=== PATIENT | male | born 2000 ===

== ENCOUNTER 2023-01-21 06:18 | Day surgery (SDC) | payer BC, SELFPAY ==
[2023-01-21] VITALS (8 sets, daily range): BP systolic 73–144; BP diastolic 34–83; PULSE 64–94; RESP 16–18; TEMP 36–37.1; O2SAT 93–100; BMI 23.9
--- NOTE | 2023-01-21 06:51 | W.PM.HP.N ---
Date of service: 01/21/23 Time of Service: 06:52 Assessment and Plan Assessment and plan (1) Phimosis: Status: Acute Assessment and plan: For circumcision History of Present Illness History of Present Illness Chief Complaint: Phimosis Narrative: This is a 22 year old man who has been having difficulty retracting the foreskin for over a year. He has pain when he delevops an erection and has intercourse. He has had episodes of paraphimosis but has not required a trip to the ED for this issue. He has failed conservative management with topical creams. He presents for circumcision. Review of Systems Narrative: No fevers or chills No vision change or dysphasia No diabetes or thyroid No shortness of breath, cough or hemoptysis No chest pain or palpitations No nausea, vomiting, hepatitis, ulcers, jaundice, diarrhea or constipation No seizures, strokes or peripheral neuropathy No bleeding disorders or anemia No gout or arthralgia PFSH All Active Problems Phimosis (Acute) Atopic dermatitis (Acute) Social History Smoking/Tobacco Use Status: Never Smoking risk assessment performed?: Yes Alcohol Intake: never Drug use: Never Substance use type: does not use Do you feel safe at home: Yes Do you feel safe in your relationship?: Yes Meds Allergies and Home Medications Allergies Allergy/AdvReac Type Severity Reaction Status Date / Time No Known Allergies Allergy Verified 01/21/23 06:23 Home Medications Medication Instructions Recorded Confirmed Type triamcinolone acetonide 0.1 % 1 applic topical DAILY 01/07/23 01/21/23 History topical cream multivitamin 1 tab PO DAILY 01/14/23 01/21/23 History Exam Const General: cooperative Neck Neck: supple Resp Effort & Inspection: normal respiratory effort Auscultation: clear to auscultation bilaterally Cardio Rate: regular rate Rhythm: regular rhythm GI Palpation: soft Penis: phimosis Neuro General: patient alert, patient awake and patient oriented x3 Results Last Vital Signs Temp 37.1 C 01/21/23 06:24 Pulse 94 H 01/21/23 06:24 Resp 16 01/21/23 06:24 BP 144/83 H 01/21/23 06:24 Pulse Ox 100 01/21/23 06:24 Time Spent Time spent with Patient: <40 minutes Time was spent: care coordination
[2023-01-21] MEDS: Lactated Ringers 1,000 ML 80 ML IV (06:52)
--- NOTE | 2023-01-21 06:56 | W.ANESPRE ---
General Info Date of Service Date Performed: 01/21/23 Height: 5 ft 8 in Weight: 71.4 kg Body Mass Index (BMI): 23.9 Surgical Procedure: Operation Date: 01/21/23 07:40 Proposed Procedure Side Surgeon p Circumcision Davian Haas MD Meds Allergies and Home Medications Allergies Allergy/AdvReac Type Severity Reaction Status Date / Time No Known Allergies Allergy Verified 01/21/23 06:23 Home Medication Medication Instructions Recorded triamcinolone acetonide 0.1 % 1 applic topical DAILY 01/07/23 topical cream multivitamin 1 tab PO DAILY 01/14/23 Current Visit Medications: Current Medications Generic Name Dose Route Start Last Admin Trade Name Freq PRN Reason Stop Dose Admin Ringer's Solution 1,000 mls @ 80 mls/hr 01/21/23 06:00 01/21/23 06:52 IV 02/19/23 23:59 80 mls/hr INFUSION JUAN Administration Cefazolin Sodium/Dextrose 2 gm in 50 mls @ 100 mls/hr 01/21/23 06:00 Ancef Duplex IVPB 01/21/23 16:00 PREOP JUAN IV Miscellaneous Supplies 1 each 01/21/23 06:00 Iv Access IV 02/19/23 23:59 DIRECTED JUAN Sodium Chloride 0 ml 01/21/23 06:00 Normal Saline Flush 10 Ml Syr IV 02/19/23 23:59 PRN PRN Sodium Chloride 0 ml 01/21/23 06:00 Normal Saline 10 Ml Vial IJ 02/19/23 23:59 DIRECTED PRN Sterile Water 0 ml 01/21/23 06:00 Water,Injection,Sterile 10 Ml Vial IJ 02/19/23 23:59 DIRECTED PRN PFSH Active Problems Active Problems: Problem Status Onset Code Phimosis N47.1 Atopic dermatitis L20.9 Tobacco Smoking/Tobacco Use Status: Never Alcohol Alcohol Intake: never Substance Use Substance use: Never Substance use type: does not use Vital Signs and Lab Results Vital Signs Most Recent Vital Signs in EMR: Most Recent Vital Signs Temp Pulse Resp BP Pulse Ox 37.1 C 94 H 16 144/83 H 100 01/21/23 06:24 01/21/23 06:24 01/21/23 06:24 01/21/23 06:24 01/21/23 06:24 Lab Results Blood Type / Crossmatch: No Data to Display Complete Blood Count: No Data to Display Complete Metabolic Panel: No Data to Display Liver Function Panel: No Data to Display Coagulation Panel: No Data to Display Cardiac Panel: No Data to Display Arterial Blood Gas: No Data to Display Venous Blood Gas: No Data to Display Pancreas Panel: No Data to Display Thyroid Panel: No Data to Display Infectious Disease: No Data to Display Blood Cultures: No Data to Display Toxicology Panel: No Data to Display Anesthesia Assessment and Plan Anesthesia History Personal History: No History of Anesthesia Complications Family History: No Family History of Anesthesia Complications Exercise Tolerance Exercise Tolerance: Metabolic Equivalents>4 Pertinent Negatives Pertinent Negatives: No Symptoms of GERD, No Major Cardiovascular Symptoms or Complaints, No Major Pulmonary Symptoms or Complaints and No History of CVA/TIA Cardiac & Pulmonary Exam Cardiac Exam: Normal S1/S2 Heart Sounds Pulmonary Exam: Clear Bilateral Breath Sounds Implantable Cardiac Device Does patient have a Pacemaker or an ICD?: No Airway Exam Known Difficult Airway: No Mallampati Class: 1 Mouth Opening: Normal (> 3cm) Thyromental Distance: Greater than 3 cm Neck Range of Motion: Full ROM Neck Circumference: Normal Teeth Condition: Normal Dentition ASA Classification ASA Score: ASA 1 Emergency Case?: No NPO Status NPO Status: NPO Clears >2 hours, Solids >8 hours Anesthesia Plan Resuscitation Status: Full Code Anesthesia Technique: General Anesthesia Airway Planned: LMA Monitors Used: Standard Monitors
[2023-01-21] MEDS: ceFAZolin 2 GM/50 ML BAG IVPB (07:31)
[2023-01-21] MEDS: Bupivacaine 0.5% Pres-Free 30 ML VIAL (07:46)
--- NOTE | 2023-01-21 08:11 | W.PM.DSUDISC ---
Date of service: 01/21/23 Time of Service: 08:12 Discharge Plan Disposition Condition: Stable Discharge Details Reason For Visit: circumcision Attending Provider: Davian Haas Primary Care Provider: Galo Crandall Home Meds and New Rx's Prescriptions: No Action multivitamin Tablet 1 tab PO DAILY triamcinolone acetonide 0.1 % cream 1 applic topical DAILY Discharge Instructions Additional Instructions: in AM, get dressing wet and unwrap dressing - then leave incision open to air OK to shower 01/22 followup appt 1 to 2 weeks for wound check Activity:: no lifting/straining for 1 week Remove Dressings/Wound Care:: 24 hours Shower/Bathe:: 24 hours Diet:: As Tolerated DS: Diagnosis Discharge Diagnosis (1) Phimosis: Status: Acute
--- NOTE | 2023-01-21 08:16 | ROE_ITS ---
Date of service: 01/21/23 Time of Service: 08:16 Operative Note Operative Note DATE OF PROCEDURE: 01/21/23 PRE-OP DIAGNOSIS: Phimosis POST-OP DIAGNOSIS: same PROCEDURE: circumcision SURGEON: Davian Haas ANESTHESIA TYPE: Local By Surgeon and General:No Airway Refer to Anesthesia Record ESTIMATED BLOOD LOSS: 10 PATHOLOGY: none sent COMPLICATIONS: None Patient was transported to: same day Patient's condition: stable Implants: none Indications: This is a 22-year-old gentleman who is uncircumcised. For the past 1 to 2 years, he has had progressive difficulty retracting the foreskin. At times, the skin will become trapped back behind the glans causing even more discomfort. He has not had any benefit from conservative treatment with topical ointments. He presents now for circumcision. Findings: phimosis Procedure Description: The patient was brought to the operating room on 01/21/2023. After successful induction of general anesthesia, he was placed in the supine position. His genitalia was prepped with betadine and draped. A dorsal penile nerve block was performed using quarter percent Marcaine. A penile ring block was also performed using the Marcaine. A circumferential incision was made on the outer aspect of the foreskin. The incision was made at approximately the level of the coronal sulcus. A dorsal slit was then performed and the inner aspect of the foreskin was expose d. A second circumferential incision was made approximately 2 cm below the level of the coronal sulcus. The incisions were connected and the redundant foreskin was removed. The incision sites were inspected for hemostasis. Any bleeding points were cauterized using the coagulation current of the Bovie. The skin edges were then reapproximated using simple interrupted 4-0 chromic sutures. An iodoform gauze was then applied to the incision site. The patient tolerated this procedure well with no complications.
[2023-01-21] MEDS: ePHEDrine 25 MG/5 ML Syringe IVP ×2 (08:33→08:46)
--- NOTE | 2023-01-21 09:53 | W.ANESPOSTOP ---
Postoperative Evaluation Date, Time and Location Date Performed: 01/21/23 Time Performed: 09:53 Patient Location: Day Surgery Unit Vital Signs Most Recent Imported Vital Signs: Most Recent Vital Signs Temp Pulse Resp BP Pulse Ox 36.6 C 80 18 120/73 99 01/21/23 09:18 01/21/23 09:18 01/21/23 09:18 01/21/23 09:18 01/21/23 09:18 Pain Score Most Recent Pain Score: Most Recent Pain Score Pain Level 0 01/21/23 09:18 Assessment Mental Status: Awake (Alert & Oriented to Patient Baseline) Airway and Respiratory Function: Patent airway with normal (patient baseline) respiratory exam Cardiovascular Function: Hemodynamically Stable Hydration Status: Adequately Hydrated Nausea & Vomiting: No Nausea or Vomiting Pain: Pt. Denies Any Pain Peripheral Nerve Block: Patient did not receive a nerve block
== END 2023-01-21 10:05 | disposition home or self-care (01) ==
PROVIDERS: PCP Family Medicine; Visit Provider Urology
PROC: (CPT 54150; principal; 2023-01-21 07:30)
DX: N47.1 Phimosis (principal)
CPT/HCPCS: 54150; J0690; J1100; J1885; J2250; J2405; J2704